=== PATIENT | male | born 1960 | race American Indian/Alaskan Native ===

== ENCOUNTER → 2017-11-14 | Outpatient (CLI) | payer OTHER ==
[~2017-11-14] MED LIST: PERCOCET 5/3251 TAB PO
== END | disposition home or self-care (01) ==
LOC: NUCLEAR 10:00
DX: M81.0 Age-related osteoporosis without current pathological fracture (principal)

== ENCOUNTER 2020-07-12 | Outpatient (CLI) | payer OTHER | END 2020-07-12 14:53 | disposition home or self-care (01) | LOC: PPH VACUNA | DX: Z23 Encounter for immunization (principal) ==

== ENCOUNTER 2020-11-24 12:32 | Outpatient (CLI) | payer OTHER | END 2020-11-24 14:50 | disposition home or self-care (01) | LOC: NUCLEAR 12:32 | DX: M81.0 Age-related osteoporosis without current pathological fracture (principal) ==

== ENCOUNTER 2021-04-19 13:40 | Outpatient (CLI) | payer OTHER | END 2021-04-19 13:55 | disposition home or self-care (01) | LOC: PPH VACUNA 13:40 | PROVIDERS: ATTEND Emergency Medicine Pediatric Emergency Medicine | DX: Z23 Encounter for immunization (principal) ==

== ENCOUNTER 2023-10-27 13:48 | Outpatient (CLI) | payer OTHER | END 2023-10-27 14:01 | disposition home or self-care (01) | LOC: NUCLEAR 13:48 | PROVIDERS: ATTEND Internal Medicine Sports Medicine | DX: M85.80 Other specified disorders of bone density and structure, unspecified site (principal); M81.0 Age-related osteoporosis without current pathological fracture ==